=== PATIENT | female | born 1990 | race African-American/Black ===

== ENCOUNTER 2017-01-31 00:56 | Inpatient (IN) | payer OTHER, MEDICAID ==
[~2017-01-31] VITALS: Ht 167.6 cm; Wt 57.7 kg
[~2017-01-31 00:56] MED LIST: CYCL1TAB29 PO
[2017-01-31 03:32] VITALS: BP 130/85; PULSE 96; RESP 18; TEMP 98.4; O2SAT 100
[2017-01-31] MEDS ORDERED: ACETAMINOPHEN 325 MG TAB PO PRN (04:00)
[2017-01-31] MEDS ORDERED: LORazepam 2 MG/ML VIAL IM PRN (04:00)
[2017-01-31] MEDS ORDERED: ALUMINUM/MAGNESIUM/SIMETH 30 ML CUP PO PRN (04:00)
[2017-01-31] MEDS ORDERED: MAGNESIUM HYDROXIDE SUSP 30 ML CUP PO PRN (04:00)
[2017-01-31 05:40] VITALS: PULSE 77; RESP 17; TEMP 98.2; O2SAT 100
[2017-01-31] MEDS: NICOTINE 21 MG/24 HR PATCH T-DERMAL SCH (09:00)
[2017-01-31] MEDS: LORazepam 1 MG TAB PO SCH ×2 (14:30→22:10)
--- NOTE | 2017-01-31 14:53 | MH ---
cc: RADHA RINCON DATE OF ADMISSION 01/31/2017 PRESENTING CHIEF COMPLAINT AND HISTORY OF PRESENT ILLNESS This [id number] black female was transferred from [facility] under the [place] Act initiated by the law enforcement due to overdose on Advil. The records from the emergency room at that facility were reviewed. According to the H&P of the emergency room physician she indicated that she took about 15 Advil after an argument with her boyfriend over financial issues and that she was trying to kill herself. However, since admission to this unit she has denied all this according to the nursing staff who I reviewed the case with. The lab workup done in the emergency room of [facility] was essentially unremarkable except her potassium was low at 3.0 and she was given IV fluids. Her test is negative and urine drug screen is positive for benzodiazepines. Prior to the evaluation the case was discussed with the nursing staff on the unit who indicated since admission she has been very pleasant, polite and cooperative. She has not exhibited any aggressive or self-destructive behavior nor has she made any threats of harm to self or others. At the time of this evaluation Miss Nieves was pleasant and cooperative though somewhat apprehensive. When asked about her understanding of the reason for this hospitalization she responded "I feel so embarrassed. They said that I was trying to kill myself. I can tell you I was not. I have had problems sleeping for many years. I usually take about three or four Advil p.m. at night to sleep but yesterday I took about eight of them. My boyfriend was standing there and he took me to the hospital saying that I was trying to kill myself but I was not. They [place] Acted me and brought me here. I have two jobs. I have 4-year-old child. I am going to school. Why would I want to kill myself?" She went on and on to emphasize that she had no intention whatsoever to harm herself and did not need to stay in the hospital any longer. However, when further explored she acknowledged experiencing "financial difficulties" and had an argument with her boyfriend over this. She indicated that he did not recognize the seriousness of this and she became upset and told him "I want to go to sleep, leave me alone." When asked as to how she felt about her behavior she responded "I feel bad. I have never been in a police car in my life. I feel so embarrassed. I can tell you I was not trying to kill myself." She acknowledged experiencing a bout of depression after the of her child 4 years ago and was treated with various antidepressants i.e. Lexapro, Zoloft, Paxil, etc. She stated in addition she was also taking some Xanax. She repeatedly stated that she did not wish to take antidepressant and specifically she did not wish to see any psychiatrist. She mentioned she used to take a sleeping medication which gave her "nightmares" and she discontinued. She could not recall the name of the medications. Most recently she was on Zoloft which she discontinued a few weeks back. She was vague about the reasons for discontinuing it. She mentioned her appetite had declined and she had lost about 5 pounds in the past 3 months. She denied any change in her memory or concentration. She denied any previous suicide attempts. However, records indicated that she had engaged in self-mutilation. When further explored she acknowledged experiencing "mood swings" which she described as follows "sometimes I get really angry, I get mad and then I get sad and then I am happy like nothing ever happened." Specifically, she denied experiencing any grandiosity, hyperverbosities, spending sprees, hypersexuality, etc.. On further exploration she denied experiencing any other psychosocial stressors. PAST PSYCHIATRIC HISTORY As mentioned she denied any previous psychiatric intervention. However, she indicated that she used to see a therapist at [facility] whose name she could not recall. She denied any previous psychiatric hospitalization. As mentioned, she has been on various antidepressant after the of her child 4 years ago. PAST MEDICAL HISTORY She denied any known medical illness. Specifically, denied any history of cardiac problem, head injury or seizures. MEDICATIONS She is currently on no medications. FAMILY HISTORY Her parents are alive and live together. Her father works for a warehouse and mother is a case hardener at [employer]. She has one brother. She denied any family history of psychiatric illness or substance abuse. She indicated that she did not have good relationship with her father growing up but the relationship is much better now. PERSONAL AND SOCIAL HISTORY She grew up in this area and finished high school. She stated that she stayed a student. As a child she was "hyper." She denied any difficulty sustaining attention. She denied any history of delinquency. 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 She denied any history of physical or sexual trauma. She denied any recent alcohol or drug abuse but admitted to smoking marijuana until a year ago. She has never been but has been living with her boyfriend for several years and they have one child 4-years-old. CLINICAL OBSERVATION/MENTAL STATUS EXAM At the time of this evaluation she presented as a casually dressed, reasonably well-groomed black female who looked her stated age. She was somewhat anxious and apprehensive initially but as the session progressed she became more at ease and open. No overt anger or hostility was noticed. No bizarre behavioral mannerisms were noticed. Her speech was coherent and appropriate. Her affect was appropriate, pleasant. She showed full range of emotions, i.e., smiled and laughed frequently. Subjectively, she described her mood as "I am feeling fine." There was no evidence of any thought disorder. No renee delusions, auditory or visual hallucinations were noticed or reported. She repeatedly denied any suicidal or homicidal ideations. She denied any previous suicide attempts. Cognitive function she was alert, oriented to time, place, person and situation. Memory, immediate she could do 5 digits forward, 4 digits backward. Recent, she could recall 2/3 objects after 10 minutes. Remote, she could recall presidents up to President Naseem. Her attention and concentration was impaired. She could do serial sevens up to 93 and that too with difficulty. Her judgment and insight was felt to be fair. REVIEW OF SYSTEMS She denied any diarrhea, vomiting or abdominal pain. She denied any dysuria, hematuria or frequency. She denied any chest pain, palpitation or dyspnea on exertion. She denied muscle weakness, numbness or any history of seizures. PHYSICAL EXAMINATION Physical examination was not done as this has already been done in the ER. No acute medical issues were identified and she was considered medically stable for transfer to this hospital. No gross neurological deficits noticed at this time. DIAGNOSTIC IMPRESSION [place] I: Adjustment reaction with mixed emotional features. Status post overdose. Possible dysthymic disorder. History of marijuana abuse under remission. [place] II: No diagnosis. [place] III: No diagnosis. [place] IV: Severity of psychosocial stressors moderate, i.e. financial difficulties, conflictual relationship with boyfriend. [place] V: Current GAF score 40. FORMULATION AND TREATMENT PLAN Based on this evaluation and the background information available to me at this time Ms. Nieves is experiencing emotional distress due to the above identified psychosocial stressors. In addition, she seems to have experienced bouts of depression which tends to minimize. She is quite ambivalent about taking antidepressant or for that matter any psychotropic medications. She is also not very supportive of seeking psychiatric help. These issues will be further explored and addressed in individual psychotherapy sessions. Should she agreed consideration will be given to starting her on an antidepressant of her choice. In the meantime, she will be started on a small dose of Ativan to reduce her anxiety and will be prescribed Restoril to help her with insomnia. She will participate in various other unit activities i.e. occupational therapy, recreational therapy, group therapy. Her identified problems: 1. Current psychosocial stressors. 2. Depression. 3. Noncompliance. 4. Poor impulse control/poor anger management. Her assets: 1. She is verbal. 2. Good physical health. Her estimated length of stay is 3-5 days. MD CHACHA Quintanilla/ANAMARIA /2:06 PM /2:23 PM
[2017-01-31 17:42] LABS: FREE T4 1.22 NG/DL (0.76-1.46)
[2017-01-31 18:10] VITALS: BP 129/77; PULSE 89; RESP 16; TEMP 98.8; O2SAT 100
[2017-01-31] MEDS: REMOVE OLD NICOTINE PATCH T-DERMAL SCH (21:00)
[2017-01-31] MEDS: TEMAZEPAM 15 MG CAP PO PRN (23:46)
[2017-02-01 05:29] VITALS: BP 111/64; PULSE 85; RESP 18; TEMP 97.6; O2SAT 100
[2017-02-01] MEDS: LORazepam 1 MG TAB PO SCH ×2 (05:56→14:35)
[2017-02-01 08:29] LABS: AUTOMATED NEUTROPHIL # 2.8 TH/MM3 (1.8-7.7); BASOPHIL # 0.1 TH/MM3 (0-0.2); BASOPHIL % 1.2 % (0.0-2.0); EOSINOPHIL # 0.1 TH/MM3 (0-0.4); EOSINOPHIL % 1.6 % (0.0-4.0); HEMATOCRIT 38.6 % (35.0-46.0); HEMO FLAGS DIFF FINAL; LYMPH % 33.8 % (9.0-44.0); LYMPHOCYTE # 1.8 TH/MM3 (1.0-4.8); MEAN CELL VOLUME 95.9 FL (80.0-100.0); MEAN CORPUSCULAR HEMOGLOBIN 32.3 PG (27.0-34.0); MEAN CORPUSCULAR HGB CONC 33.7 % (32.0-36.0); MONO % 9.9 % (0.0-8.0); NEUT % 53.5 % (16.0-70.0); PLATELET COUNT 235 TH/MM3 (150-450); RED BLOOD COUNT 4.02 MIL/MM3 (4.00-5.30); RED CELL DISTRIBUTION WIDTH 13.1 % (11.6-17.2); WHITE BLOOD COUNT 5.3 TH/MM3 (4.0-11.0)
[2017-02-01 08:57] LABS: ALKALINE PHOSPHATASE 84 U/L (45-117); ALT (GPT) 13 U/L (10-53); ANION GAP 8 MEQ/L (5-15); AST (GOT) 8 U/L (15-37); BICARBONATE 23.8 MEQ/L (21.0-32.0); BLOOD UREA NITROGEN 6 MG/DL (7-18); CHLORIDE 106 MEQ/L (98-107); GLOMERULAR FILTRATION RATE 124 ML/MIN (>89); POTASSIUM 3.9 MEQ/L (3.5-5.1); SODIUM (NA) 138 MEQ/L (136-145)
[2017-02-01] MEDS: NICOTINE 21 MG/24 HR PATCH T-DERMAL SCH (08:58)
[2017-02-01 18:00] VITALS: BP 107/79; PULSE 95; RESP 17; TEMP 99.2; O2SAT 98
[2017-02-01] MEDS: REMOVE OLD NICOTINE PATCH T-DERMAL SCH (21:00)
[2017-02-01] MEDS: TEMAZEPAM 15 MG CAP PO PRN (21:38)
[2017-02-01] MEDS: LORazepam 1 MG TAB PO PRN (22:39)
[2017-02-02 07:25] VITALS: BP 112/60; PULSE 66; RESP 18; TEMP 97.6; O2SAT 97
[2017-02-02] MEDS: NICOTINE 21 MG/24 HR PATCH T-DERMAL SCH (09:00)
[2017-02-02] MEDS: LORazepam 1 MG TAB PO PRN (09:19)
[2017-02-02] MEDS ORDERED: LORA-474 PO (12:35)
[2017-02-02] MEDS ORDERED: LORazepam 0.5 MG TAB PO PRN (13:00)
--- NOTE | 2017-02-03 08:47 | MD ---
cc: RADHA RINCON M.D. ADMISSION DATE: 01/31/2017 DISCHARGE DATE: 02/02/2017 ADMISSION DIAGNOSES [place] I: Adjustment reaction with mixed emotional features. Status post overdose. Possible dysthymic disorder. History of marijuana abuse under remission. [place] II: No diagnosis. [place] III: No diagnosis. [place] IV: Severity of psychosocial stressors, moderate, i.e., financial difficulties, conflictual relationship with boyfriend. [place] V: Current GAF score 40. DISCHARGE DIAGNOSES [place] I: Adjustment reaction with mixed emotional features. Status post overdose. Possible dysthymic disorder. History of marijuana abuse under remission. Panic disorder with agoraphobia. [place] II: No diagnosis. [place] III: No diagnosis. [place] IV: Severity of psychosocial stressors, moderate, i.e., financial difficulties, conflictual relationship with boyfriend. [place] V: Current GAF score 60. BRIEF HISTORY This 26-year-old black female was transferred from [facility] under the Sw[place] Act initiated by the law enforcement due to overdose on Advil. This was precipitated by an argument with her boyfriend over financial matters. Please refer to my initial evaluation for details. LABORATORY WORKUP Most of it was done in the emergency room of the other hospital and was reviewed by me. The lab workup done in here included CBC with differential which was unremarkable. CMP was unremarkable. T4, TSH was essentially unremarkable. HOSPITAL COURSE When initially evaluated she looked somewhat anxious and depressed. However, she repeatedly denied she overdosed on the medications and indicated that she has been suffering from chronic insomnia and took more of Advil and Benadryl than she normally takes. She acknowledged having an argument with her boyfriend over financial matters. Apparently, her boyfriend had recently lost his job and she was the only one having any income. She stated that she found a second job and was afraid that she might lose it if she was not discharged. She expressed remorse at her impulsive behavior "I was mad and took these pills. I was not trying to kill myself. I feel embarrassed". She expressed these feelings several times in subsequent individual psychotherapy sessions as well. We discussed the role of medications in her overall treatment plan. Specifically I recommended trial of an antidepressant to which she seemed ambivalent, as according to her in the past she had tried Prozac which caused her to entertain suicidal thoughts. However, when educated about this and emphasized the need for regular psychiatric followup, she became somewhat more open. However, she still preferred that this be considered as an outpatient. Initially she was reluctant to have any outpatient psychiatric followup. However, towards the end of this admission she became much more receptive. Towards the end of this admission her affect brightened up. She began to interact more with the staff and peers. She did not exhibit any aggressive or self-destructive behavior nor did she make any threats of harm to self or others. She remained quite worried about losing her job and not being there to take care of her 4-year-old son. She had a few telephone conversations with her boyfriend and according to her they resolved their conflicts. I had a telephone conversation with the boyfriend also. We reviewed the patient's condition and discussed discharge plans. He also supported the patient's version of overdose, i.e., an impulsive act out of anger. He also supported his request for discharge. A written note to this effect is in the chart. Case was reviewed with the nursing staff today and it was felt that she no longer meets the Swanson Act criteria and as such is being discharged home with recommendation to have individual and marital therapy at [facility], in addition to psychiatric followup. The patient had earlier indicated that she had an appointment with a psychiatrist at [facility] but did not keep it, but this time she is motivated enough to keep it. For any medical issues she is recommended to continue outpatient follow up with her primary care physician. So at the time of discharge she is denying any suicidal or homicidal ideations. She displayed positive attitude. No overt psychotic symptoms are noticed. She is given a prescription for Ativan 0.5 mg one p.o. q.8 hours p.r.n. for anxiety #12, one refill. It should be mentioned that in subsequent individual psychotherapy session she gave history of chronic high anxiety level in addition to panic attacks and fear of crowded places. MD CHACHA Quintanilla/GAVI /12:39 PM /8:42 AM
== END 2017-02-02 15:45 | disposition home or self-care (01) | DRG 882 ==
LOC: H260 00:56
PROVIDERS: ADMIT Psychiatry & Neurology Psychiatry; ATTEND Psychiatry & Neurology Psychiatry
DX: F43.23 Adjustment disorder with mixed anxiety and depressed mood (principal); Z91.19 Patient's noncompliance with other medical treatment and regimen; F40.01 Agoraphobia with panic disorder; F51.04 Psychophysiologic insomnia
CPT/HCPCS: 80053; 84439; 84443; 85025

== ENCOUNTER 2017-04-04 12:48 | Emergency (ER) | payer OTHER, MEDICAID ==
[~2017-04-04] VITALS: Ht 167.6 cm; Wt 62.0 kg
[~2017-04-04 12:48] MED LIST changes: +LORA-474 PO
[2017-04-04 13:00] VITALS: BP 139/94; PULSE 104; RESP 16; TEMP 98.7; O2SAT 99
[2017-04-04] MEDS ORDERED: IBUP800T23 PO (13:18)
--- NOTE | 2017-04-04 13:19 | PD ---
HPI Chief Complaint: ENT Complaint Time Seen by Provider: 13:05 Travel History International Travel<30 days: No Contact w/Intl Traveler<30days: No Traveled to known affect area: No History of Present Illness HPI 26-year-old female presents emergency department for evaluation of left sided facial pain, ear pain and headache for one day. Patient has pain at the site of her left TMJ. She denies trauma, dental pain, fever, or chills. She reports the pain is worse with palpation of the joint and opening and closing of the jaw. She reports the pain is constant, sharp, severity 7 out of 10. She reports headache is similar to her previous migraines. Gradual onset. She believes it was brought on by the pain in the left TMJ joint. Pain is relieved when the jaw is kept in neutral position. PFSH Past Medical History Medical History: Denies Significant Hx Autoimmune Disease: No Depression: Yes Cancer: No Cardiovascular Problems: No Chemotherapy: No Diabetes: No Diminished Hearing: No Endocrine: No Genitourinary: Yes (HPV) Headaches: No Immune Disorder: No Psychiatric: Yes (Hx of anxiety and depression) Radiation Therapy: No Seizures: No Sickle Cell Disease: No Thyroid Disease: No Tetanus Vaccination: Unknown Influenza Vaccination: No ?: Not LMP: LAST WEEK Menopausal: No : 1 Para: 1 Past Surgical History Surgical History: No Previous Surgery AICD: No Arteriovenous Shunt: No Insulin Pump: No Joint Replacement: No Pacemaker: No Social History Alcohol Use: No Tobacco Use: Yes (cigars occ) Substance Use: No Allergies-Medications (Allergen,Severity, Reaction): Coded Allergies: No Known Allergies (Verified , 04/04/17) Reported Meds & Prescriptions Reported Meds & Active Scripts Active Ibuprofen 800 Mg Tab 800 Mg PO Q8H PRN Ativan (Lorazepam) 1 Mg Tab 0.5 Mg PO Q8HR PRN Flexeril (Cyclobenzaprine HCl) 10 Mg Tab 10 Mg PO TID PRN Review of Systems Except as stated in HPI: all other systems reviewed are Neg Physical Exam Narrative GENERAL: Well-nourished, well-developed patient. SKIN: Focused skin assessment warm/dry. HEAD: Normocephalic. Atraumatic. Tender over the left TMJ without crepitus without deformity. EYES: No scleral icterus. No injection or drainage. NECK: Supple, trachea midline. No JVD or lymphadenopathy. CARDIOVASCULAR: Regular rate and rhythm without murmurs, gallops, or rubs. RESPIRATORY: Breath sounds equal bilaterally. No accessory muscle use. GASTROINTESTINAL: Abdomen soft, non-tender, nondistended. MUSCULOSKELETAL: No cyanosis, or edema. BACK: Nontender without obvious deformity. No CVA tenderness. Data Data Last Documented VS Vital Signs Date Time Temp Pulse Resp B/P Pulse Ox O2 Delivery O2 Flow Rate FiO2 04/04/17 13:00 98.7 104 16 139/94 99 MDM Medical Decision Making Medical Screen Exam Complete: Yes Emergency Medical Condition: Yes Differential Diagnosis TMJ, otitis media, dentalgia Narrative Course 26-year-old female presents emergency department for evaluation of left lower jaw pain at the site of the TMJ. On exam patient has no evidence of dental infection or ear infection. The TMJ joint is without crepitus but tender to palpation. Patient will be with NSAIDs and instructed to follow up with her primary care doctor. Diagnosis Primary Impression: TMJ syndrome Referrals: Primary Care Physician Additional Instructions: Take the medication as prescribed. Follow-up the primary doctor for reevaluation. Return if he has new or worsening symptoms. Scripts Ibuprofen 800 Mg Kin663 Mg PO Q8H PRN (Pain/Inflammation) #30 TAB Prov:Nancy Fall 04/04/17 Disposition: 01 DISCHARGE HOME Condition: Stable Nancy Fall Apr 04, 2017 13:19
[2017-04-04] MEDS ORDERED: KETOROLAC TROMETHAMINE 60 MG/2 ML (IM) VIAL IM ONE (13:30)
== END 2017-04-04 13:40 | disposition home or self-care (01) ==
LOC: PHEFT 12:48
DX: M26.602 Left temporomandibular joint disorder, unspecified (principal)
CPT/HCPCS: 96372; 99284; J1885

== ENCOUNTER 2017-11-14 13:46 | Emergency (ER) | payer MEDICAID, OTHER ==
[~2017-11-14] VITALS: Ht 170.2 cm; Wt 63.0 kg
[~2017-11-14 13:46] MED LIST changes: +CYCL10TA PO; -CYCL1TAB29 PO; +IBUP1TAB7 PO
[2017-11-14 13:49] VITALS: BP 104/64; PULSE 90; RESP 12; TEMP 98.6; O2SAT 99
--- NOTE | 2017-11-14 14:59 | PD ---
HPI . Pelvic pain Chief Complaint: Abdominal Pain Time Seen by Provider: 14:08 Travel History International Travel<30 days: No Contact w/Intl Traveler<30days: No Traveled to known affect area: No History of Present Illness HPI Patient presents with a two-week history of intermittent lower abdominal pain. She describes it as cramping. It is very mild. It has been getting progressively worse. She reports factors. No vaginal discharge or bleeding. No nausea, vomiting or diarrhea. It is associated with nipple tenderness. Her last normal menstrual period was October 11. She reports 2 positive home test. [facility] Past Medical History Medical History: Denies Significant Hx Autoimmune Disease: No Depression: Yes Cancer: No Cardiovascular Problems: No Chemotherapy: No Diabetes: No Diminished Hearing: No Endocrine: No Genitourinary: Yes (HPV) Headaches: No Heparin Induced Thrombocytopen: No Immune Disorder: No Implanted Vascular Access Dvce: No Psychiatric: Yes (Hx of anxiety and depression) Radiation Therapy: No Seizures: No Sickle Cell Disease: No Thyroid Disease: No ?: Not LMP: 10/11/17 Menopausal: No : 1 Para: 1 Past Surgical History Surgical History: No Previous Surgery AICD: No Arteriovenous Shunt: No Insulin Pump: No Joint Replacement: No Pacemaker: No Social History Alcohol Use: No Tobacco Use: Yes (cigars occ) Substance Use: No Allergies-Medications (Allergen,Severity, Reaction): Coded Allergies: No Known Allergies (Verified , 04/04/17) Reported Meds & Prescriptions Reported Meds & Active Scripts Active Ibuprofen 800 Mg Tab 800 Mg PO Q8H PRN Ativan (Lorazepam) 1 Mg Tab 0.5 Mg PO Q8HR PRN Flexeril (Cyclobenzaprine HCl) 10 Mg Tab 10 Mg PO TID PRN Review of Systems Except as stated in HPI: all other systems reviewed are Neg Physical Exam Narrative GENERAL: Awake and alert and in no acute distress. SKIN: Warm and dry. HEAD: Normocephalic/atraumatic. EYES: Pupils are equal. Extraocular movements are intact. NECK: Normal range of motion. CARDIOVASCULAR: Regular rate and rhythm. RESPIRATORY: Nonlabored respirations. ABDOMEN: Soft and nontender. : Normal female external genitalia. Physiologic appearing discharge in the vaginal vault. Os is closed. There is no cervical motion tenderness or adnexal tenderness. Her uterus is small. MUSCULOSKELETAL: Atraumatic. NEUROLOGICAL: Nonfocal. PSYCHIATRIC: Appropriate mood and affect. Data Data Last Documented VS Vital Signs Date Time Temp Pulse Resp B/P (MAP) Pulse Ox O2 Delivery O2 Flow Rate FiO2 11/14/17 13:49 98.6 90 12 104/64 (77) 99 Orders Orders Gc And Chlamydia Pcr (11/14/17 14:08) Wet Prep Profile (11/14/17 14:08) Urinalysis - C+S If Indicated (11/14/17 14:08) Ed Urine Pregnancytest Poc (11/14/17 14:08) Beta Hcg (Quant/Titer) (11/14/17 14:55) Labs Laboratory Tests Test 11/14/17 14:30 11/14/17 15:00 Urine Color YELLOW Urine Turbidity HAZY Urine pH 6.0 Urine Specific [place] 1.017 Urine Protein NEG mg/dL Urine Glucose (UA) NEG mg/dL Urine Ketones NEG mg/dL Urine Occult Blood NEG Urine Nitrite NEG Urine Bilirubin NEG Urine Urobilinogen LESS THAN 2.0 MG/DL Urine Leukocyte Esterase MOD Urine RBC 2 /hpf Urine WBC 5 /hpf Urine Squamous Epithelial Cells 14 /hpf Urine Bacteria OCC /hpf Urine Mucus MANY /lpf Microscopic Urinalysis Comment CULT NOT INDICATED Clue Cells (Wet Prep) NONE SEEN Vaginal Trichomonas (Wet Prep) NONE SEEN Vaginal Yeast (Wet Prep) NONE SEEN Human Chorionic Gonadotropin, Quant 62 MIU/ML MDM Medical Decision Making Medical Screen Exam Complete: Yes Emergency Medical Condition: Yes Differential Diagnosis Differential diagnosis of pelvic pain includes but is not limited to UTI, PID, ectopic , spontaneous AB, constipation, viral illness Narrative Course This patient presents with intermittent pelvic pain last 2 weeks. Her test is positive. I have ordered a quantitative HCG. I have not ordered a pelvic ultrasound. She is likely very early in her and an ultrasound will probably not be useful. She has no tenderness on bimanual exam. quant is 62 wet prep neg. UA>>mod LE, occ bact, many mucous--probably contaminant Diagnosis Primary Impression: Pelvic pain affecting Qualified Codes: O26.891 - Other specified related conditions, first trimester; R10.2 - Pelvic and perineal pain Patient Instructions: Abdominal Pain in (ED), General Instructions Disposition: 01 DISCHARGE HOME Condition: Stable Yola Lorenzo MD Nov 14, 2017 14:59
[2017-11-14 15:59] LABS: BACTERIA, URINE OCC /hpf; BILIRUBIN, URINE NEG (NEG); BLOOD, URINE NEG (NEG); GLUCOSE,URINE NEG (NEG); KETONE, URINE NEG (NEG); MUCUS URINE MANY /lpf (OCC); NITRITE,URINE NEG (NEG); SQUAMOUS EPITHELIAL CELL URINE 14 /hpf (0-5); URINE COLOR YELLOW (YELLW/STRAW); URINE LEUKOCYTE ESTERASE MOD (NEG)
== END 2017-11-14 16:19 | disposition home or self-care (01) ==
LOC: NEPD 13:46
DX: O26.899 Other specified pregnancy related conditions, unspecified trimester (principal); R10.2 Pelvic and perineal pain; O99.330 Smoking (tobacco) complicating pregnancy, unspecified trimester; F17.290 Nicotine dependence, other tobacco product, uncomplicated; Z3A.00 Weeks of gestation of pregnancy not specified
CPT/HCPCS: 81001; 84702; 84703; 87210; 87491; 87591; 99283